=== PATIENT | female | born 1975 | race Caucasian/White ===

== ENCOUNTER 2019-04-08 08:43 | Emergency (ER) | payer SELFPAY ==
[~2019-04-08] VITALS: Ht 165.1 cm; Wt 68.0 kg
[2019-04-08 09:10] VITALS: BP 125/77
[2019-04-08] MEDS ORDERED: ACETAMINOPHEN 325MG TABLET PO STA (09:25)
== END 2019-04-08 10:52 | disposition home or self-care (01) ==
LOC: ER 09:05
DX: S39.012A Strain of muscle, fascia and tendon of lower back, initial encounter (principal); V49.49XA Driver injured in collision with other motor vehicles in traffic accident, initial encounter; Y93.89 Activity, other specified; Y92.89 Other specified places as the place of occurrence of the external cause; Y99.8 Other external cause status; M79.605 Pain in left leg
CPT/HCPCS: 72100; 99283